=== PATIENT | male | born 1965 | race Caucasian/White ===

== ENCOUNTER 2018-10-15 11:03 | Emergency (ER) | payer SELFPAY ==
--- NOTE | 2018-10-15 12:04 | ER Document Report ---
ED Medical Screen (RME) - General Chief Complaint: Flank Pain Stated Complaint: FLANK PAIN Time Seen by Provider: 10/15/18 11:41 Mode of Arrival: Ambulatory Information source: Patient Notes: Patient is a 52-year-old male presented emergency department chief complaint of left flank pain. Patient reports pain has been ongoing for approximately 1 week. He reports the pain now radiates into his groin. Patient is concerned he may be passing a kidney stone. Patient denies any dysuria, fever or vomiting. He does report nausea. Patient does report that he was here a few days ago, states he had a CT scan at that time which showed no kidney stone. Patient reports he treated him as a musculoskeletal strain. Exam: Left CVA tenderness. I have greeted and performed a rapid initial assessment of this patient. A comprehensive ED assessment and evaluation of the patient, analysis of test results and completion of the medical decision making process will be conducted by additional ED providers. I have specifically instructed the patient or family members with the patient to immediately return to any nursing staff should anything change in the patient's condition or with their chief complaint. This medical record was dictated with voice recognizing software. There may be grammatical, syntax errors that are unintended. TRAVEL OUTSIDE OF THE [place] IN LAST 30 DAYS: No - Related Data Allergies/Adverse Reactions: morphine Allergy (Verified 10/15/18 11:04) Past Medical History - Social History Frequency of alcohol use: None Drug Abuse: Marijuana - Past Medical History Cardiac Medical History: Reports: Hx Coronary Artery Disease, Hx Heart Attack - 2018, Hx Hypertension Pulmonary Medical History: Comment Only: Hx Pneumonia - pneumothrorax Renal/ Medical History: Reports: Hx Kidney Stones. Denies: Hx Peritoneal Dialysis Musculoskeltal Medical History: Reports Hx Musculoskeletal Deformity, Reports Hx Musculoskeletal Trauma Traumatic Medical History: Reports: Hx Spine Fracture - Cervical spine Past Surgical History: Reports: Hx Cardiac Surgery - stent - Immunizations Hx Diphtheria, Pertussis, Tetanus Vaccination: Yes Physical Exam - Vital signs Vitals: Temp Pulse Resp BP Pulse Ox 98.0 F 57 L 16 147/89 H 98 10/15/18 11:11 10/15/18 11:11 10/15/18 11:11 10/15/18 11:11 10/15/18 11:11 Course - Vital Signs Vital signs: Temp Pulse Resp BP Pulse Ox 98.0 F 57 L 16 147/89 H 98 10/15/18 11:11 10/15/18 11:11 10/15/18 11:11 10/15/18 11:11 10/15/18 11:11
[2018-10-15 12:23] LABS: ABSOLUTE EOSINOPHILS # (AUTO) 0.2 10^3/uL (0.0-0.6); ABSOLUTE LYMPHOCYTES (AUTO) 1.9 10^3/uL (0.5-4.7); ABSOLUTE MONOCYTES (AUTO) 0.3 10^3/uL (0.1-1.4); ABSOLUTE NEUT (AUTO) 2.3 10^3/uL (1.7-8.2); EOSINOPHILS % (AUTO) 3.3 % (0-6); HEMATOCRIT 42.9 % (37.9-51.0); HEMOGLOBIN 14.5 g/dL (13.5-17.0); LYMPHOCYTES % (AUTO) 40.3 % (13-45); MEAN CORPUSCULAR HEMOGLOBIN 32.1 pg (27.0-33.4); MEAN CORPUSCULAR HGB CONC 33.8 g/dL (32.0-36.0); MEAN CORPUSCULAR VOLUME 95 fl (80-97); MONOCYTES % (AUTO) 5.8 % (3-13); PLATELET COUNT 213 10^3/uL (150-450); RED BLOOD COUNT 4.51 10^6/uL (4.35-5.55); RED CELL DISTRIBUTION WIDTH 13.6 % (11.5-14.0); SEGMENTED NEUTROPHILS % (AUTO) 49.6 % (42-78); TOTAL CELLS COUNTED % (AUTO) 100 %; WHITE BLOOD COUNT 4.7 10^3/uL (4.0-10.5)
[2018-10-15 12:43] LABS: ALBUMIN 4.2 g/dL (3.5-5.0); ALKALINE PHOSPHATASE 68 U/L (38-126); ANION GAP 9 (5-19); ASPARTATE AMINO TRANSFERASE 22 U/L (17-59); BILIRUBIN,DIRECT 0.2 mg/dL (0.0-0.4); BILIRUBIN,TOTAL 0.3 mg/dL (0.2-1.3); BLOOD UREA NITROGEN 11 mg/dL (7-20); CALCIUM 9.6 mg/dL (8.4-10.2); CARBON DIOXIDE 28 mmol/L (22-30); CHLORIDE 104 mmol/L (98-107); GLUCOSE 124 mg/dL (75-110); POTASSIUM 4.2 mmol/L (3.6-5.0); TOTAL PROTEIN 6.4 g/dL (6.3-8.2)
[2018-10-15 12:57] LABS: APPEARANCE,URINE CLEAR; BILIRUBIN,URINE NEGATIVE (NEGATIVE); COLOR,URINE YELLOW; GLUCOSE, URINE NEGATIVE (NEGATIVE); KETONES,URINE NEGATIVE (NEGATIVE); LEUKOCYTE ESTERASE,URINE NEGATIVE (NEGATIVE); NITRITE,URINE NEGATIVE (NEGATIVE); PROTEIN,URINE NEGATIVE (NEGATIVE); URINE SPECIFIC GRAVITY 1.019; UROBILINOGEN,URINE NEGATIVE mg/dL (<2.0)
--- NOTE | 2018-10-15 14:34 | ER Document Report ---
ED General - General Chief Complaint: Flank Pain Stated Complaint: FLANK PAIN Time Seen by Provider: 10/15/18 11:41 Primary Care Provider: REBECA VILLEDA MD [Primary Care Provider] - Follow up as needed Mode of Arrival: Ambulatory Notes: 52-year-old male with history of ACS, trauma with fall from 30 feet off a ladder 2 years ago presents to the emergency department with chief complaint of left lower flank pain x1 week. Patient was seen here 3 days ago and had a negative CT for nephrolithiasis or any concerning pathology. He said that the pain has been persistent and he is "aggravated". Patient states the pain is not as bad as when he was seen here initially. Patient states the pain has radiated down around his groin and over the front of his thigh. Patient denies any fevers or chills, denies any acute shortness of breath or chest pain, denies any abdominal pain, denies nausea or vomiting, denies any numbness/tingling/weakness/paralysis in his lower extremities, denies urinary retention, denies saddle paresthesia. No testicular pain, no testicular swelling, no abnormal urethral discharge or other urinary symptoms. TRAVEL OUTSIDE OF THE [place] IN LAST 30 DAYS: No - Related Data Allergies/Adverse Reactions: morphine Allergy (Verified 10/15/18 11:04) Past Medical History - General Information source: Patient - Social History Smoking Status: Current Some Day Smoker Frequency of alcohol use: None Drug Abuse: Marijuana Family History: Reviewed & Not Pertinent Patient has suicidal ideation: No Patient has homicidal ideation: No - Past Medical History Cardiac Medical History: Reports: Hx Coronary Artery Disease, Hx Heart Attack - 2018, Hx Hypertension Pulmonary Medical History: Comment Only: Hx Pneumonia - pneumothrorax Renal/ Medical History: Reports: Hx Kidney Stones. Denies: Hx Peritoneal Dialysis Musculoskeletal Medical History: Reports Hx Musculoskeletal Deformity, Reports Hx Musculoskeletal Trauma Traumatic Medical History: Reports: Hx Spine Fracture - Cervical spine Past Surgical History: Reports: Hx Cardiac Surgery - stent - Immunizations Hx Diphtheria, Pertussis, Tetanus Vaccination: Yes Review of Systems - Review of Systems Constitutional: See HPI EENT: No symptoms reported Cardiovascular: See HPI Respiratory: See HPI Gastrointestinal: See HPI Genitourinary: See HPI Male Genitourinary: No symptoms reported Musculoskeletal: No symptoms reported Skin: No symptoms reported Hematologic/Lymphatic: No symptoms reported Neurological/Psychological: See HPI Physical Exam - Vital signs Vitals: Temp Pulse Resp BP Pulse Ox 98.0 F 57 L 16 147/89 H 98 10/15/18 11:11 10/15/18 11:11 10/15/18 11:11 10/15/18 11:11 10/15/18 11:11 - Notes Notes: PHYSICAL EXAMINATION: Reviewed vital signs and charting by RN GENERAL: Alert, interacts well. No acute distress. HEAD: Normocephalic, atraumatic. EYES: Pupils equal and round. Extraocular movements intact. ENT: Oral mucosa moist, tongue midline. NECK: Full range of motion. Trachea midline. LUNGS: Clear to auscultation bilaterally, no wheezes, rales, or rhonchi. No respiratory distress. HEART: Regular rate and rhythm. No murmur ABDOMEN: soft, non-tender. No distention. Bowel sounds present BACK: This to palpation on the left lower back in the region of L1-L2 EXTREMITIES: Moves all 4 extremities spontaneously. No edema, No cyanosis. PSYCH: Normal affect, normal mood. SKIN: Warm, dry, normal turgor. No rashes or lesions noted. Course - Re-evaluation Re-evalutation: 10/15/18 14:40 Patient was seen here a couple of days ago and CT was negative for left nephrolithiasis or abdominal aortic aneurysm. Patient's pain pattern is most consistent with radicular type pain from the lumbar spine in the area of L1-L2. I explained this to the patient but he states that he has never had a history of back pain. Plan is to give him Toradol IM, dexamethasone 10 mg once, and a short course of muscle relaxers to take at home. Urinalysis did not show any microscopic hematuria or RBCs. I have very low suspicion that it is nephrolithiasis. - Vital Signs Vital signs: Temp Pulse Resp BP Pulse Ox 98.0 F 57 L 16 147/89 H 98 10/15/18 11:11 10/15/18 11:11 10/15/18 11:11 10/15/18 11:11 10/15/18 11:11 - Laboratory Result Diagrams: 10/15/18 12:10 10/15/18 12:10 Laboratory results interpreted by me: 10/15/18 12:10 Glucose 124 H Discharge - Discharge Clinical Impression: Lumbar back pain Condition: Good Disposition: HOME, SELF-CARE Additional Instructions: You were seen in the emergency department this afternoon for lower back pain. After doing a thorough exam and reviewing your chart and history I strongly suspect that it is related to something called radicular nerve pain. This is when your nerve roots coming out of your spine get pushed on when there is even a small amount of inflammation of muscle. This is all very reassuring, especially in the setting of not having flank pain in the area of your kidneys. You have received a steroid shot and an NSAID shot that should help relieve your symptoms. I am also sending you home with a short course of a muscle relaxer that you can take in the evening to help loosen your. Please do not just lay around as it is very important to stay active and do gentle stretching. If you develop urinary retention and are unable to pee even if we need to, you get numbness in your sit bones, you develop paralysis in either of your legs, or you have any other concerning symptoms please immediately return to the emergency department. Referrals: REBECA VILLEDA MD [Primary Care Provider] - Follow up as needed
[2018-10-15] MEDS ORDERED: KETOROLAC TROMETHAMINE 60 MG/2 ML SDV IM ONE (14:46)
[2018-10-15] MEDS ORDERED: DEXAMETHASONE SOD PHOS INJ 10 MG/1 ML VIAL IM ONE (14:46)
[2018-10-15 14:56] VITALS: BP 166/104
== END 2018-10-15 15:18 | disposition home or self-care (01) ==
LOC: ER 11:03
DX: M54.5 Low back pain (principal); R10.9 Unspecified abdominal pain; I25.10 Atherosclerotic heart disease of native coronary artery without angina pectoris; I10 Essential (primary) hypertension; F17.200 Nicotine dependence, unspecified, uncomplicated; Z87.442 Personal history of urinary calculi; Z95.5 Presence of coronary angioplasty implant and graft; Z88.5 Allergy status to narcotic agent
CPT/HCPCS: 99284; 96372; 36415; 85025; 80053; 81001; J1885; J1100